=== PATIENT | female | born 1955 | race American Indian/Alaskan Native ===

== ENCOUNTER 2017-01-17 09:34 | Day surgery (SDC) | payer MEDICARE ==
[~2017-01-17 09:34] MED LIST: NACL 0.9% 1000 ML 1,000 ML ONE
--- NOTE | 2017-01-17 09:46 | Short Stay Summary ---
Short Stay Documentation Date of service: 01/17/17 Narrative H&P: 61 year old presents for her first screening colonoscopy. - History Principal diagnosis: colon screening H&P: obtained from office Past Medical History: hypertension, hypothyroidism, other (obesity) Past Surgical History: cholecystectomy, Social history: no significant social history - Allergies and Medications Current Medications: Allergies No Known Allergies Allergy (Unverified 01/17/17 09:34) - Physical exam General appearance: no acute distress HEENT: PERRLA, EOMI Lungs: Clear to auscultation Heart: Regular rate, Normal S1, Normal S2 Gastrointestinal: normal, obese Neurological: Normal speech - Hospital course Hospital course: Uneventful colonoscopy/polypectomy. - Disposition Condition at discharge: Good Disposition: DC-01 TO HOME OR SELFCARE - Discharge Diagnoses (1) Colon polyps Status: Acute Qualifiers: Colon polyp type: C Colon location: C Inflammatory colon polyp complication status: I (2) Internal hemorrhoids Status: Acute (3) Encounter for screening colonoscopy for [id number] patient Status: Acute Short Stay Discharge Plan Activity: other (no driving today) Diet: other (resume usual diet) Additional Instructions: 1. Patient to call for pathology results in 2 weeks if she has not heard from us with her results. 2. First-degree relatives (siblings and children) should be informed that colon polyps run in their family, and be advised to begin their colon screening at age 40 rather than age 50.
--- NOTE | 2017-01-17 10:17 | Anesthesia Consultation ---
Anesthesia Consult and Med Hx Date of service: 01/17/17 - Airway Anesthetic Teeth Evaluation: Good, Partials ROM Head & Neck: Adequate Mental/Hyoid Distance: Adequate Mallampati Class: Class II Intubation Access Assessment: Probably Good - Pulmonary Exam CTA: Yes - Cardiac Exam Cardiac Exam: RRR - Pre-Operative Health Status ASA Pre-Surgery Classification: ASA3 Proposed Anesthetic Plan: MAC - Cardiovascular System Hx Hypertension: Yes - Endocrine Hx Hypothyroidism: Yes - Other Systems Hx Obesity: Yes
--- NOTE | 2017-01-17 10:18 | Anesthesia Day of Surgery ---
Anesthesia Day of Surgery - Day of Surgery Patient Examined: Yes Patient H&P Reviewed: Yes Patient is NPO: Yes
[2017-01-17] MEDS ORDERED: DIPRIVAN 10 MG/ML IV ONE ×2 (10:42→10:43)
[2017-01-17] MEDS ORDERED: WATER FOR IRRIG STERILE IR ONE (11:23)
[2017-01-17] MEDS ORDERED: NACL 0.9% 1000 ML 1,000 ML IV SCH (12:00)
--- NOTE | 2017-01-17 12:01 | Operative Report ---
Operative Report Operative Report: Date of procedure: 01/17/2017 Preprocedure diagnosis: Average risk colon screening. No prior colonoscopy. Post procedure diagnosis: Polyps and hemorrhoids Procedure name(s): Colonoscopy with cold snare polypectomy 4 Surgeon: Jeison Yi MD Anesthesia: Monitored anesthesia care EBL: Less than 1-2 mL Procedure: The indications, techniques, potential complications and alternatives , had been discussed in full detail prior to the date of the exam, and once again on the day of the exam. Questions were encouraged and answered, and consent was thereby obtained. The patient was placed in the left lateral decubitus position, and was medicated by anesthesia services. See the anesthesia records for details. The anal sphincter was digitally dilated. The digital exam was unremarkable. The tip of a [employer] video colonoscope was inserted through the anal sphincter and into the rectal vault. It was then advanced proximally under continuous visualization of the lumen to the cecum without difficulty. Along the way, 2 sessile polyps measuring 5 mm each were excised from the mid transverse colon with a cold snare and retrieved (container #1). There was minimal bleeding. Thereafter the instrument was advanced fully to the cecum. The prep was good and landmarks were identified without difficulty. No pathology was found in the cecum. The appendiceal orifice and ileocecal valve appeared normal. From the cecum, the instrument was slowly withdrawn with careful circumferential examination of the colonic mucosa. No pathology was found in the ascending colon. 2 sessile polyps measuring 3-4 mm, were excised from the hepatic flexure with a cold snare and retrieved (container #2). There was minimal bleeding. Withdrawal of the instrument was continued. No additional pathology was found in the transverse colon, splenic flexure, descending colon, sigmoid colon or the rectum from the forward view. Retroflexion in the rectum revealed small internal hemorrhoids without stigmata of bleeding. The instrument was straightened and fully withdrawn. The procedure was very well tolerated. Postprocedure she was monitored in the recovery area of the GI lab to ensure stability prior to her release. See the outpatient record for details regarding instructions to patient, medications and plans for follow-up. NOTE: The photograph capture function failed during the procedure, after only four pictures had been taken, those of the transverse colon polyps and cecal landmarks. All subsequent photographs, those showing the remaining segments of colon, the hepatic flexure polyps and internal hemorrhoids, were lost and could not be reproduced. Final diagnosis: 1. 2 sessile polyps, 5 mm, mid transverse colon 2. 2 sessile polyps, 3 and 4 mm, hepatic flexure 3. Internal hemorrhoids Colon screening information: No previous colonoscopy, next colonoscopy likely in 3 years, depending upon today's histology. Jeison Yi M.D. Dictated 01/17/2017 at 11:58 AM
--- NOTE | 2017-01-17 12:23 | Post Anesthesia Evaluation ---
- Post Anesthesia Evaluation Patient Participated: Yes Airway Patent: Yes Stable Respiratory Function: Yes Nausea/Vomiting: No Temp > 96.8F: Yes Pain Manageable: Yes Adequeate Hydration: Yes Anesthesia Complications: No Block Receding Appropriately: Not Applicable Patient on Ventilator: No
[2017-01-17 12:43] VITALS: BP 139/67
== END 2017-01-17 09:35 | disposition home or self-care (01) ==
LOC: GIO 09:34
PROVIDERS: ATTEND Internal Medicine Gastroenterology
DX: Z12.11 Encounter for screening for malignant neoplasm of colon (principal); D12.3 Benign neoplasm of transverse colon; K64.8 Other hemorrhoids; I10 Essential (primary) hypertension; E03.9 Hypothyroidism, unspecified; E66.01 Morbid (severe) obesity due to excess calories; Z68.44 Body mass index [BMI] 60.0-69.9, adult; Z90.49 Acquired absence of other specified parts of digestive tract; Z98.890 Other specified postprocedural states
CPT/HCPCS: 45385; 88305; J2704; J7030